=== PATIENT | male | born 1990 | race Caucasian/White ===

== ENCOUNTER 2016-11-29 17:56 | Emergency (ER) | payer OTHER ==
--- NOTE | 2016-11-29 18:57 | UC ---
UC General HPI - HPI Summary HPI Summary: facial flushing and redness x 4 days , + fatigue, c/o bilateral arms and legs numbness x 1 day , + palpitations no chest pain, no sob , no fever, no chills, - History of Current Complaint Chief Complaint: UCGeneralIllness Stated Complaint: LEFT ARM & BILATERAL LEG NUMBNESS Time Seen by Provider: 11/29/16 18:12 Hx Obtained From: Patient Onset/Duration: Gradual Onset, Lasting Days - 4, Still Present Timing: Constant Onset Severity: Moderate Current Severity: Moderate Associated Signs & Symptoms: Positive: Agitation, Dizziness, Diaphoresis, Palpitations. Negative: Abdominal Pain, Anticoagulation Therapy, Back Pain, Confusion, Cough, Chest Pain, Decreased Responsiveness, Diarrhea, Dysuria, Decreased Oral Intake, Edema, Fever, Headache, Hematemesis, Hemoptysis, Immunocompromised, Melena, Nausea, Recent Medication Changes, Syncope, SOB, Trauma, Vomiting, Wheezing, Weakness - Allergy/Home Medications Allergies/Adverse Reactions: Allergies Allergy/AdvReac Type Severity Reaction Status Date / Time Amoxicillin [From Augmentin] Allergy Unknown Unknown Verified 11/29/16 18:03 Reaction Details Clavulanic Acid Allergy Unknown Unknown Verified 11/29/16 18:03 [From Augmentin] Reaction Details Home Medications: Home Medications NK [No Home Medications Reported] 11/29/16 [History Confirmed 11/29/16] PMH/Surg Hx/FS Hx/Imm Hx Previously Healthy: Yes - Surgical History Surgical History: Yes Surgery Procedure, Year, and Place: COLONOSCOPY - Family History Known Family History: Negative: Hypertension, Diabetes - Social History Alcohol Use: Occasionally Substance Use Type: None Smoking Status (MU): Light Every Day Tobacco Smoker Type: Cigarettes Amount Used/How Often: 8 CIGS A DAY Review of Systems Constitutional: Fatigue Skin: Other - facial flushing Eyes: Negative ENT: Negative Respiratory: Negative Cardiovascular: Palpitations Gastrointestinal: Negative Genitourinary: Negative Motor: Negative Neurovascular: Negative Musculoskeletal: Negative Neurological: Negative Psychological: Anxious All Other Systems Reviewed And Are Negative: Yes Physical Exam Triage Information Reviewed: Yes Appearance: Well-Appearing, No Pain Distress, Well-Nourished Vital Signs: Initial Vital Signs Temp 99.6 F 11/29/16 18:03 Pulse 105 11/29/16 18:03 Resp 20 11/29/16 18:03 BP 167/92 11/29/16 18:03 Pulse Ox 96 11/29/16 18:03 Vital Signs Reviewed: Yes Eye Exam: Normal Eyes: Positive: Conjunctiva Clear ENT Exam: Normal ENT: Positive: Normal ENT inspection, Hearing grossly normal, Pharynx normal Neck exam: Normal Neck: Positive: Supple, Nontender, No Lymphadenopathy Respiratory Exam: Normal Respiratory: Positive: Chest non-tender, Lungs clear, Normal breath sounds Cardiovascular: Positive: Tachycardia Abdomen Description: Positive: Nontender, No Organomegaly, Soft Bowel Sounds: Positive: Present Musculoskeletal Exam: Normal Psychological Exam: Normal Skin: Positive: Other - facial flushing Course/Dx - Differential Dx - Multi-Symptom Provider Diagnoses: facial flushing. viral illness Discharge - Discharge Plan Condition: Stable Disposition: HOME Patient Education Materials: Viral Syndrome (ED) Forms: *Work Release Additional Instructions: will check cbc, cmp, tsh cont. with rest, increase fluid, call the office tomorrow for the blood work results do not work for the next 3 days follow up with your pcp in 5 days if not better
[2016-11-29 19:02] VITALS: BP 152/87
[2016-11-30 10:32] LABS: Hematocrit 44 % (42-52); Mean Corpuscular HGB Conc 34 g/dl (31-36); Mean Corpuscular Hemoglobin 31 pg (27-31); Mean Corpuscular Volume 92 fL (80-94); Mean Platelet Volume 10 um3 (7.4-10.4); Red Blood Count 4.78 10^6/ul (4.0-5.4); Red Cell Distribution Width 13 % (10.5-15); White Blood Count 9.7 10^3/ul (3.5-10.8)
[2016-11-30 10:51] LABS: Albumin 4.6 g/dL (3.2-5.2); BUN/Creatinine Ratio 15.3 (8-20); Calcium 9.5 mg/dL (8.6-10.3); EGFR Non-African American 91.7 (>60); Globulin 2.7 g/dL (2-4); Potassium 3.9 mmol/L (3.5-5.0); Total Bilirubin 0.5 mg/dL (0.2-1.0); Total Protein 7.3 g/dL (6.4-8.9)
[2016-11-30 10:53] LABS: TSH (Thyroid Stimulating Horm) 1.76 mcIU/mL (0.34-5.60)
== END 2016-11-29 19:03 | disposition home or self-care (01) ==
LOC: UCCORT 17:56
DX: B34.9 Viral infection, unspecified (principal); F17.210 Nicotine dependence, cigarettes, uncomplicated; Z88.1 Allergy status to other antibiotic agents
CPT/HCPCS: 36415; 80053; 84443; 85025; 93005; 99202; G0463